=== PATIENT | female | born 1945 | race Caucasian/White ===

== ENCOUNTER 2019-04-27 16:31 | Inpatient (IN) ==
[2019-04-27] MEDS ORDERED: Naloxone 0.4 MG/ML INJ IVP PRN (20:47)
[2019-04-27] MEDS ORDERED: *HR* LORazepam 2 MG/ML VIAL IVP ONE ×2 (20:51→21:15)
[2019-04-27] MEDS ORDERED: *HR* FentaNYL (PF) 100 MCG/2 ML VIAL IVP ONE (20:51)
[2019-04-27] MEDS ORDERED: Ringers Solution, Lactated 1,000 ML IVC SCH (21:00)
[2019-04-27] MEDS ORDERED: D5% in Water 1,000 ML IVC PRN (22:07)
[2019-04-27] MEDS ORDERED: *HR* Dextrose 50 % in Water (Syg) 50 ML SYRINGE IVP PRN (22:07)
[2019-04-27] MEDS ORDERED: Dextrose Gel 15 GM/37.5 ML TUBE PO PRN ×2 (22:07)
[2019-04-27] MEDS ORDERED: Ringers Solution, Lactated 500 ML IVC ONE (23:11)
[2019-04-28] MEDS: MetroNIDAZOLE 500 MG/100 ML 500 MG/100 ML BAG IVPB SCH ×4 (00:15→23:00)
[2019-04-28] MEDS: Insulin LISPRO 300 UNITS/3 ML VIAL SQ SCH ×4 (02:27→17:19)
[2019-04-28 05:02] LABS: Prothrombin Time 11.4 Seconds (9.4-12.1)
[2019-04-28 05:09] LABS: Hemoglobin 13.1 g/dL (11.5-15.4); Mean Platelet Volume 11.1 fL (9.4-12.4); Segmented Neutrophils % 90.3 %
[2019-04-28 05:10] LABS: Basophils # 0.1 K/mcL (0.0-0.2); Basophils % 0.2 %; Hematocrit 40.6 % (35.3-44.9); Immature Granulocytes % 0.7 % (0-4); Lymphocytes % 3.2 %; Mean Corpuscular HGB Conc 32.3 g/dL (31.6-35.5); Mean Corpuscular Hemoglobin 29.9 pg (28.0-33.3); Mean Corpuscular Volume 92.7 fL (83.0-100.0); Monocytes # 1.8 K/mcL (0.0-1.3); Monocytes % 5.6 %; Neutrophils # 28.7 K/mcL (1.6-8.9); Platelet Count 320 K/mcL (140-400); Red Blood Count 4.38 M/mcL (3.82-4.97); Red Cell Distribution Width 13.5 % (11.5-14.5)
[2019-04-28] MEDS: Pantoprazole 40 MG VIAL IVP SCH ×2 (05:14→17:19)
[2019-04-28 05:26] LABS: Albumin 3.8 g/dL (3.5-5.7); Albumin/Globulin Ratio 1.7 (1.1-2.2); Bilirubin,Total 0.5 mg/dL (0.3-1.0); Calcium 8.8 mg/dL (8.6-10.3); Globulin 2.2 g/dL (2.4-3.5); Magnesium 2.9 mg/dL (1.6-2.6); Phosphorous 3.5 mg/dL (2.7-4.5); Potassium 3.3 mEq/L (3.5-5.1)
[2019-04-28 05:35] LABS: White Blood Count 31.8 K/mcL (4.3-11.1)
[2019-04-28] MEDS: MORPHINE SULFATE IT SCH ×2 (07:12→20:36)
[2019-04-28] MEDS ORDERED: *HR* Propofol 200 MG/20 ML VIAL IVP ONE ×2 (11:50→12:18)
[2019-04-28] MEDS ORDERED: Lidocaine -MPF 2% 2 ML VIAL ONE (11:50)
[2019-04-28] MEDS ORDERED: Simethicone 40 MG/0.6 ML MLS IR ONE (11:58)
[2019-04-28] MEDS ORDERED: *HR* PHENYLEPHRINE 1,000 MCG/10 ML SYRINGE IVP ONE (12:11)
[2019-04-28] MEDS ORDERED: 0.9 % Sodium Chloride 500 ML IVC ONE (12:56)
[2019-04-28] MEDS: Ondansetron 4 MG/2 ML VIAL IVP PRN (15:22)
[2019-04-28] MEDS: D5% in 0.45% NACL 1,000 ML IVC SCH (16:30)
[2019-04-28] MEDS ORDERED: Ringers Solution, Lactated 1,000 ML IVC SCH (17:00)
[2019-04-28] MEDS: cefTRIAXone 1,000 MG in Water for inj. (sterile) 10 ML IVP SCH (23:00)
[2019-04-29] MEDS: Ondansetron 4 MG/2 ML VIAL IVP PRN ×2 (00:49→09:03)
[2019-04-29] MEDS: Insulin LISPRO 300 UNITS/3 ML VIAL SQ SCH ×3 (00:49→20:33)
[2019-04-29] MEDS: D5% in 0.45% NACL 1,000 ML IVC SCH (04:13)
[2019-04-29] MEDS: Pantoprazole 40 MG VIAL IVP SCH ×2 (04:52→17:29)
[2019-04-29 05:10] LABS: Basophils % 0.1 %; Immature Granulocytes % 0.7 % (0-4); Mean Corpuscular HGB Conc 31.4 g/dL (31.6-35.5); Mean Corpuscular Hemoglobin 29.5 pg (28.0-33.3); Monocytes % 5.3 %; Red Cell Distribution Width 13.9 % (11.5-14.5)
[2019-04-29 05:12] LABS: Hemoglobin 11.6 g/dL (11.5-15.4); Lymphocytes # 1.2 K/mcL (0.6-4.6); Lymphocytes % 3.8 %; Mean Corpuscular Volume 94.1 fL (83.0-100.0); Monocytes # 1.7 K/mcL (0.0-1.3); Neutrophils # 28.1 K/mcL (1.6-8.9); Platelet Count 254 K/mcL (140-400); Red Blood Count 3.93 M/mcL (3.82-4.97); Segmented Neutrophils % 90.1 %
[2019-04-29 05:16] LABS: White Blood Count 31.2 K/mcL (4.3-11.1)
[2019-04-29 05:27] LABS: BUN/Creatinine Ratio 63 (6-26); Blood Urea Nitrogen 62 mg/dL (8-23); Calcium 8.6 mg/dL (8.6-10.3); Carbon Dioxide 34 mEq/L (23-29); Chloride 105 mEq/L (98-107); Glucose 277 mg/dL (70-105); Osmolality,Calculated 330 (280-300); Sodium 146 mEq/L (136-145); eGFR For African Americans > 60 (> 60); eGFR For Non-African Americans 55 (> 60)
[2019-04-29 06:17] LABS: Platelet Estimate Normal (Normal)
[2019-04-29] MEDS: cefTRIAXone 1,000 MG in Water for inj. (sterile) 10 ML IVP SCH (08:06)
[2019-04-29] MEDS: MetroNIDAZOLE 500 MG/100 ML 500 MG/100 ML BAG IVPB SCH ×2 (08:07→17:28)
[2019-04-29 09:38] LABS: Magnesium 2.9 mg/dL (1.6-2.6); Phosphorous 2.3 mg/dL (2.7-4.5)
[2019-04-29] MEDS ORDERED: Dextrose Gel 15 GM/37.5 ML TUBE PO PRN ×3 (09:49→16:10)
[2019-04-29] MEDS ORDERED: *HR* Dextrose 50 % in Water (Syg) 50 ML SYRINGE IVP PRN ×2 (09:49→16:10)
[2019-04-29] MEDS ORDERED: D5% in Water 1,000 ML IVC PRN (09:49)
[2019-04-29] MEDS ORDERED: *HR* OxyCODONE Immed Rel 5 MG TABLET PO PRN (09:58)
[2019-04-29] MEDS ORDERED: Ondansetron 4 MG/2 ML VIAL IVP ONE (09:58)
[2019-04-29] MEDS ORDERED: *HR* HYDROmorphone PF 0.5 MG/0.5 ML SYRINGE IVP PRN (09:58)
[2019-04-29] MEDS ORDERED: *HR* Promethazine 25 MG/ML VIAL IVP PRN (09:58)
[2019-04-29] MEDS ORDERED: *HR* FentaNYL (PF) 100 MCG/2 ML VIAL ONE (10:25)
[2019-04-29] MEDS ORDERED: *HR* Succinylcholine 200 MG/10 ML VIAL IVP ONE (10:26)
[2019-04-29] MEDS ORDERED: Dexamethasone 4 MG/ML VIAL ONE (10:26)
[2019-04-29] MEDS ORDERED: *HR* Propofol 200 MG/20 ML VIAL IVP ONE (10:26)
[2019-04-29] MEDS ORDERED: Lidocaine -MPF 2% 2 ML VIAL ONE (10:26)
[2019-04-29] MEDS ORDERED: Ondansetron 4 MG/2 ML VIAL ONE (10:26)
[2019-04-29] MEDS ORDERED: *HR* Rocuronium Bromide 50 MG/5 ML VIAL ONE (10:26)
[2019-04-29] MEDS ORDERED: Bupivacaine/EPI 1:200k 0.5%PF 30 ML VIAL ONE (10:40)
[2019-04-29] MEDS ORDERED: Albumin Human 5% 12.5 GM/250 ML IV.SOLN ONE (10:41)
[2019-04-29] MEDS ORDERED: Acetaminophen IV 1,000 MG/100 ML INFUS..BTL ONE (10:42)
[2019-04-29] MEDS ORDERED: D10% in Water 500 ML IVC PRN ×2 (11:03→16:10)
[2019-04-29] MEDS ORDERED: *HR* PHENYLEPHRINE 1,000 MCG/10 ML SYRINGE IVP ONE (11:09)
[2019-04-29] MEDS ORDERED: Insulin LISPRO 300 UNITS/3 ML VIAL SQ SCH (12:00)
[2019-04-29] MEDS ORDERED: *HR* Phenylephrine 10 MG/ML VIAL ONE (12:07)
[2019-04-29] MEDS ORDERED: *HR* Midazolam HCl 2 MG/2 ML VIAL ONE (13:58)
[2019-04-29] MEDS ORDERED: Neostigmine Methylsulfate 3 MG/3 ML SYRINGE ONE (14:00)
[2019-04-29] MEDS ORDERED: FentaNYL (PF) 1,000 MCG in 0.9 % Sodium Chloride 80 ML IVC SCH (14:30)
[2019-04-29] MEDS ORDERED: Artificial Tears SOLN 15 ML BOTTLE BOTH EYES PRN ×2 (14:31→16:10)
[2019-04-29 14:35] LABS: ABG Base Excess 6 mEq/L (-2 to 3); ABG HCO3 32 mEq/L (21-27); ABG Oxygen Saturation 93 % (95-98); ABG PCO2 50 mmHg (35-45); ABG PH 7.41 pH Units (7.32-7.45); ABG PO2 68 mmHg (85-104); ABG TCO2 33 mEq/L (20-26); Blood Gas Modality AF; Blood Gas VT 400 cc
[2019-04-29] MEDS ORDERED: Artificial Tears SOLN 15 ML BOTTLE BOTH EYES SCH (16:00)
[2019-04-29] MEDS ORDERED: Ipratropium/Albuterol Neb 3 ML IH SCH (16:00)
[2019-04-29] MEDS ORDERED: Ondansetron 4 MG/2 ML VIAL IVP PRN (16:10)
[2019-04-29] MEDS ORDERED: Naloxone 0.4 MG/ML INJ IVP PRN (16:10)
[2019-04-29] MEDS ORDERED: Potassium Phosphate 44 MEQ in 0.9 % Sodium Chloride 250 ML IVPB ONE (17:00)
[2019-04-29] MEDS ORDERED: Clinimix E 5%-15% SOLUTION 2,000 ML with MVI, adult with vitamin K 10 ML IVC SCH ×2 (17:00)
[2019-04-29] MEDS: Ringers Solution, Lactated 1,000 ML IVC SCH (17:29)
[2019-04-29] MEDS: Ipratropium/Albuterol Neb 3 ML IH SCH ×2 (19:38→23:35)
[2019-04-29] MEDS: Chlorhexidine Rinse 15 ML MOUTHWASH MM SCH (20:31)
[2019-04-29] MEDS: FentaNYL (PF) 1,000 MCG in 0.9 % Sodium Chloride 80 ML IVC SCH (20:31)
[2019-04-29] MEDS ORDERED: Chlorhexidine Rinse 15 ML MOUTHWASH MM SCH (21:00)
[2019-04-29] MEDS ORDERED: *HR* LORazepam 2 MG/ML VIAL IVP ONE (22:52)
[2019-04-30] MEDS: Insulin LISPRO 300 UNITS/3 ML VIAL SQ SCH ×6 (00:11→20:10)
[2019-04-30] MEDS: MetroNIDAZOLE 500 MG/100 ML 500 MG/100 ML BAG IVPB SCH ×4 (00:13→16:52)
[2019-04-30] MEDS: Ipratropium/Albuterol Neb 3 ML IH SCH ×3 (03:21→11:05)
[2019-04-30 04:28] LABS: ABG Base Excess 7 mEq/L (-2 to 3); ABG HCO3 32 mEq/L (21-27); ABG Oxygen Saturation 97 % (95-98); ABG PCO2 48 mmHg (35-45); ABG PH 7.43 pH Units (7.32-7.45); ABG PO2 86 mmHg (85-104); ABG TCO2 34 mEq/L (20-26); Blood Gas Modality ASSIST CONTROL; Blood Gas VT 400 cc
[2019-04-30] MEDS: Ringers Solution, Lactated 1,000 ML IVC SCH ×2 (04:35→10:10)
[2019-04-30] MEDS: D5% in 0.45% NACL 1,000 ML IVC SCH (04:35)
[2019-04-30] MEDS: Pantoprazole 40 MG VIAL IVP SCH ×2 (05:02→16:54)
[2019-04-30 05:16] LABS: Hematocrit 32.6 % (35.3-44.9); Hemoglobin 10.3 g/dL (11.5-15.4); Mean Corpuscular HGB Conc 31.6 g/dL (31.6-35.5); Mean Corpuscular Hemoglobin 30.2 pg (28.0-33.3); Mean Corpuscular Volume 95.6 fL (83.0-100.0); Mean Platelet Volume 11.5 fL (9.4-12.4); Platelet Count 197 K/mcL (140-400); Red Blood Count 3.41 M/mcL (3.82-4.97); Red Cell Distribution Width 14.3 % (11.5-14.5)
[2019-04-30 05:31] LABS: BUN/Creatinine Ratio 56 (6-26); Blood Urea Nitrogen 49 mg/dL (8-23); Calcium 8.2 mg/dL (8.6-10.3); Carbon Dioxide 32 mEq/L (23-29); Chloride 109 mEq/L (98-107); Glucose 363 mg/dL (70-105); Magnesium 2.5 mg/dL (1.6-2.6); Osmolality,Calculated 330 (280-300); Phosphorous 2.6 mg/dL (2.7-4.5); Potassium 3.5 mEq/L (3.5-5.1); Sodium 146 mEq/L (136-145); Triglycerides 67 mg/dL (< 150); eGFR For African Americans > 60 (> 60); eGFR For Non-African Americans > 60 (> 60)
[2019-04-30 06:10] LABS: Lymphocytes # 2.2 K/mcL (0.6-4.6); Monocytes # 1.1 K/mcL (0.0-1.3); Neutrophils # 23.8 K/mcL (1.6-8.9); Platelet Estimate Normal (Normal)
[2019-04-30] MEDS: FentaNYL (PF) 1,000 MCG in 0.9 % Sodium Chloride 80 ML IVC SCH (06:10)
[2019-04-30] MEDS ORDERED: D5% in Water 1,000 ML IVC PRN ×2 (07:45→12:16)
[2019-04-30] MEDS ORDERED: *HR* Dextrose 50 % in Water (Syg) 50 ML SYRINGE IVP PRN ×2 (07:45→12:16)
[2019-04-30] MEDS ORDERED: Dextrose Gel 15 GM/37.5 ML TUBE PO PRN ×3 (07:45→12:16)
[2019-04-30] MEDS ORDERED: cefTRIAXone 1,000 MG in Water for inj. (sterile) 10 ML IVP SCH (09:00)
[2019-04-30] MEDS ORDERED: Insulin DETEMIR 100 UNIT/ML X5UNITS SQ SCH (09:00)
[2019-04-30] MEDS: Chlorhexidine Rinse 15 ML MOUTHWASH MM SCH (09:07)
[2019-04-30] MEDS ORDERED: Potassium Phosphate 44 MEQ in 0.9 % Sodium Chloride 250 ML IVPB ONE (10:27)
[2019-04-30] MEDS ORDERED: *HR* OxyCODONE Immed Rel 5 MG TABLET PO PRN (11:30)
[2019-04-30] MEDS ORDERED: Insulin LISPRO 300 UNITS/3 ML VIAL SQ SCH ×2 (12:00)
[2019-04-30] MEDS ORDERED: Naloxone 0.4 MG/ML INJ IVP PRN (12:16)
[2019-04-30] MEDS ORDERED: Ondansetron 4 MG/2 ML VIAL IVP PRN (12:16)
[2019-04-30] MEDS ORDERED: Ringers Solution, Lactated 1,000 ML IVC SCH ×2 (12:16→16:59)
[2019-04-30] MEDS ORDERED: Clinimix E 5%-15% SOLUTION 2,000 ML with MVI, adult with vitamin K 10 ML IVC SCH ×3 (12:16→17:00)
[2019-04-30] MEDS ORDERED: D10% in Water 500 ML IVC PRN (12:16)
[2019-04-30] MEDS: *HR* Metoprolol 5 MG/5 ML VIAL IVP PRN (14:43)
[2019-04-30] MEDS: *HR* OxyCODONE Immed Rel 5 MG TABLET PO PRN ×2 (15:32→22:52)
[2019-04-30] MEDS ORDERED: Furosemide 40 MG/4 ML VIAL IVP ONE (15:42)
[2019-04-30] MEDS ORDERED: Ipratropium/Albuterol Neb 3 ML IH SCH (16:00)
[2019-04-30] MEDS ORDERED: Chlorhexidine Rinse 15 ML MOUTHWASH MM SCH (21:00)
[2019-04-30] MEDS: Levalbuterol Neb 0.63 MG/3 ML IH SCH (21:35)
[2019-04-30] MEDS: Ipratropium Neb 0.5 MG NEBULIZER IH SCH (21:35)
[2019-05-01] MEDS: MetroNIDAZOLE 500 MG/100 ML 500 MG/100 ML BAG IVPB SCH (01:09)
[2019-05-01] MEDS: Insulin LISPRO 300 UNITS/3 ML VIAL SQ SCH ×4 (01:10→19:35)
[2019-05-01] MEDS: *HR* OxyCODONE Immed Rel 5 MG TABLET PO PRN (03:15)
[2019-05-01] MEDS: Levalbuterol Neb 0.63 MG/3 ML IH SCH ×3 (03:24→14:56)
[2019-05-01] MEDS: Ipratropium Neb 0.5 MG NEBULIZER IH SCH ×3 (03:24→14:56)
[2019-05-01] MEDS: *HR* Metoprolol 5 MG/5 ML VIAL IVP PRN (04:10)
[2019-05-01 04:56] LABS: ABG Base Excess 9 mEq/L (-2 to 3); ABG HCO3 33 mEq/L (21-27); ABG Oxygen Saturation 86 % (95-98); ABG PCO2 45 mmHg (35-45); ABG PH 7.48 pH Units (7.32-7.45); ABG PO2 48 mmHg (85-104); ABG TCO2 35 mEq/L (20-26)
[2019-05-01 05:04] LABS: Hematocrit 32.3 % (35.3-44.9); Hemoglobin 10.1 g/dL (11.5-15.4); Mean Corpuscular HGB Conc 31.3 g/dL (31.6-35.5); Mean Corpuscular Hemoglobin 30.3 pg (28.0-33.3); Mean Platelet Volume 11.9 fL (9.4-12.4); Platelet Count 173 K/mcL (140-400); Red Blood Count 3.33 M/mcL (3.82-4.97); Red Cell Distribution Width 14.4 % (11.5-14.5)
[2019-05-01 05:08] LABS: White Blood Count 32.8 K/mcL (4.3-11.1)
[2019-05-01 05:20] LABS: BUN/Creatinine Ratio 48 (6-26); Blood Urea Nitrogen 33 mg/dL (8-23); Carbon Dioxide 33 mEq/L (23-29); Chloride 112 mEq/L (98-107); Glucose 148 mg/dL (70-105); Magnesium 2.1 mg/dL (1.6-2.6); Osmolality,Calculated 314 (280-300); Phosphorous 2.5 mg/dL (2.7-4.5); Potassium 3.7 mEq/L (3.5-5.1); Sodium 147 mEq/L (136-145); eGFR For African Americans > 60 (> 60); eGFR For Non-African Americans > 60 (> 60)
[2019-05-01] MEDS ORDERED: FentaNYL (PF) 1,000 MCG in 0.9 % Sodium Chloride 80 ML IVC SCH ×2 (06:00→08:46)
[2019-05-01] MEDS ORDERED: Norepinephrine 4 MG in 0.9 % Sodium Chloride 250 ML IVC SCH ×2 (06:15→08:46)
[2019-05-01] MEDS: Pantoprazole 40 MG VIAL IVP SCH (07:28)
[2019-05-01] MEDS ORDERED: *HR* Midazolam HCl 5 MG/5 ML VIAL IVP ONE ×2 (07:52→08:27)
[2019-05-01] MEDS ORDERED: *HR* Midazolam HCl 2 MG/2 ML VIAL IV ONE (07:52)
[2019-05-01] MEDS ORDERED: *HR* Etomidate 20 MG/10 ML AMPUL IVP ONE (07:52)
[2019-05-01] MEDS ORDERED: Piperacillin/Tazobactam 3.375 GM in 0.9 % Sodium Chloride Mini Bag 100 ML IVPB SCH ×2 (08:00→12:00)
[2019-05-01 08:07] LABS: ABG Base Excess 7 mEq/L (-2 to 3); ABG HCO3 33 mEq/L (21-27); ABG Oxygen Saturation 89 % (95-98); ABG PCO2 49 mmHg (35-45); ABG PH 7.43 pH Units (7.32-7.45); ABG PO2 56 mmHg (85-104); ABG TCO2 34 mEq/L (20-26); Blood Gas Modality ASSIST CONTROL; Blood Gas VT 450 cc
[2019-05-01] MEDS ORDERED: *HR* Heparin 5,000 UNIT/ML VIAL IVP ONE ×2 (08:21→10:59)
[2019-05-01] MEDS ORDERED: *HR* Heparin 5,000 UNIT/ML VIAL IVP PRN ×4 (08:21→10:59)
[2019-05-01] MEDS ORDERED: *HR* Midazolam HCl 2 MG/2 ML VIAL IVP ONE (08:24)
[2019-05-01] MEDS ORDERED: Heparin 25,000 UNIT/250 ML D5W 25,000 UNIT/250 ML IV.SOLN IVC SCH ×2 (08:30→11:00)
[2019-05-01] MEDS ORDERED: Dexmedetomidine HCl 400 MCG/100 ML MLS IVC SCH ×2 (08:45→09:15)
[2019-05-01] MEDS ORDERED: *HR* Dextrose 50 % in Water (Syg) 50 ML SYRINGE IVP PRN (08:46)
[2019-05-01] MEDS ORDERED: D10% in Water 500 ML IVC PRN (08:46)
[2019-05-01] MEDS ORDERED: *HR* Metoprolol 5 MG/5 ML VIAL IVP PRN (08:46)
[2019-05-01] MEDS ORDERED: D5% in Water 1,000 ML IVC PRN (08:46)
[2019-05-01] MEDS ORDERED: Dextrose Gel 15 GM/37.5 ML TUBE PO PRN (08:46)
[2019-05-01] MEDS ORDERED: Ondansetron 4 MG/2 ML VIAL IVP PRN (08:46)
[2019-05-01] MEDS ORDERED: *HR* OxyCODONE Immed Rel 5 MG TABLET PO PRN (08:46)
[2019-05-01] MEDS ORDERED: Clinimix E 5%-15% SOLUTION 2,000 ML with MVI, adult with vitamin K 10 ML IVC SCH ×2 (08:46→17:00)
[2019-05-01] MEDS ORDERED: Naloxone 0.4 MG/ML INJ IVP PRN (08:46)
[2019-05-01] MEDS ORDERED: 0.9 % Sodium Chloride 500 ML IVC ONE (08:47)
[2019-05-01] MEDS ORDERED: levoFLOXacin 750 MG/150 ML 750 MG/150 ML BAG IVPB SCH (09:00)
[2019-05-01] MEDS ORDERED: Chlorhexidine Rinse 15 ML MOUTHWASH MM SCH (09:00)
[2019-05-01] MEDS ORDERED: Insulin DETEMIR 100 UNIT/ML X5UNITS SQ SCH ×2 (09:00)
[2019-05-01] MEDS ORDERED: Cisatracurium 200 MG in 0.9 % Sodium Chloride 180 ML IVC SCH (09:00)
[2019-05-01] MEDS ORDERED: cefTRIAXone 1,000 MG in Water for inj. (sterile) 10 ML IVP SCH (09:00)
[2019-05-01] MEDS ORDERED: 0.9 % Sodium Chloride 1,000 ML ONE ×4 (09:33→13:01)
[2019-05-01] MEDS ORDERED: Vasopressin 40 UNIT in D5% in Water 100 ML IVC SCH (10:00)
[2019-05-01] MEDS ORDERED: Isovue-370 500 ML BOTTLE IVP ONE (10:02)
[2019-05-01] MEDS ORDERED: Potassium Phosphate 44 MEQ in 0.9 % Sodium Chloride 250 ML IVPB PRN (10:29)
[2019-05-01] MEDS ORDERED: Calcium Gluconate 1gm/50mL 1 GM/50 ML BAG IVPB PRN (10:29)
[2019-05-01] MEDS ORDERED: *HR* EPINEPHrine 1 MG/10 ML SYRINGE ONE (10:49)
[2019-05-01 11:01] LABS: ABG Base Excess 2 mEq/L (-2 to 3); ABG HCO3 29 mEq/L (21-27); ABG Oxygen Saturation 85 % (95-98); ABG PCO2 54 mmHg (35-45); ABG PH 7.33 pH Units (7.32-7.45); ABG PO2 54 mmHg (85-104); ABG TCO2 30 mEq/L (20-26); Blood Gas Modality ASSIST CONTROL; Blood Gas VT 400 cc
[2019-05-01] MEDS ORDERED: Ringers Solution, Lactated 1,000 ML IVC ONE (11:09)
[2019-05-01] MEDS ORDERED: Sodium Bicarbonate 50 MEQ/50 ML VIAL IVP ONE (11:10)
[2019-05-01] MEDS ORDERED: *HR* EPINEPHrine 1 MG/10 ML SYRINGE IVP ONE (11:15)
[2019-05-01] MEDS ORDERED: Ringers Solution, Lactated 1,000 ML ONE (12:19)
[2019-05-01 12:35] LABS: Basophils % 0.2 %; Hematocrit 34.6 % (35.3-44.9); Hemoglobin 10.4 g/dL (11.5-15.4); Immature Granulocytes % 1.1 % (0-4); Lymphocytes # 1.4 K/mcL (0.6-4.6); Lymphocytes % 5.6 %; Mean Corpuscular HGB Conc 30.1 g/dL (31.6-35.5); Mean Corpuscular Hemoglobin 29.9 pg (28.0-33.3); Mean Corpuscular Volume 99.4 fL (83.0-100.0); Mean Platelet Volume 12.3 fL (9.4-12.4); Monocytes # 0.3 K/mcL (0.0-1.3); Monocytes % 1.3 %; Neutrophils # 22.8 K/mcL (1.6-8.9); Nucleated Red Blood Cells 0.1 /100 WBC (0); Platelet Count 181 K/mcL (140-400); Red Blood Count 3.48 M/mcL (3.82-4.97); Red Cell Distribution Width 14.6 % (11.5-14.5); Segmented Neutrophils % 91.8 %; White Blood Count 24.8 K/mcL (4.3-11.1)
[2019-05-01 12:38] LABS: Basophils # 0.1 K/mcL (0.0-0.2)
[2019-05-01] MEDS ORDERED: Heparin 1,000 UNITS/500 mL 500 ML ONE (12:44)
[2019-05-01] MEDS ORDERED: *HR* Heparin 10,000 UNIT/10 ML VIAL ONE (12:44)
[2019-05-01] MEDS ORDERED: ISOVUE-370 200 ML INFUS..BTL ONE (12:44)
[2019-05-01] MEDS ORDERED: Nitroglycerin 1,000 MCG/10 ML VIAL IV ONE (12:44)
[2019-05-01] MEDS ORDERED: *HR* Ticagrelor 90 MG TABLET PO ONE (12:52)
[2019-05-01 12:57] LABS: BUN/Creatinine Ratio 37 (6-26); Blood Urea Nitrogen 34 mg/dL (8-23); Calcium 7.7 mg/dL (8.6-10.3); Carbon Dioxide 29 mEq/L (23-29); Chloride 111 mEq/L (98-107); Glucose 228 mg/dL (70-105); Osmolality,Calculated 323 (280-300); Potassium 4.2 mEq/L (3.5-5.1); Sodium 149 mEq/L (136-145); Troponin I 1.35 ng/mL (< 0.04); eGFR For African Americans > 60 (> 60); eGFR For Non-African Americans > 60 (> 60)
[2019-05-01 12:57] LABS: Heparin anti-factor XA UFH 0.07 IU/mL (0.30-0.70); INR 1.5; Prothrombin Time 16.8 Seconds (9.4-12.1)
[2019-05-01] MEDS: Norepinephrine 8 MG in 0.9 % Sodium Chloride 250 ML IVC SCH ×3 (13:18→18:29)
[2019-05-01 13:19] LABS: Platelet Estimate Normal (Normal)
[2019-05-01] MEDS ORDERED: Ringers Solution, Lactated 500 ML IVC ONE (13:26)
[2019-05-01] MEDS ORDERED: Phenylephrine 50 MG in 0.9 % Sodium Chloride 250 ML IVC SCH (13:30)
[2019-05-01] MEDS ORDERED: Sodium Bicarbonate 50 MEQ/50 ML VIAL ONE (13:33)
[2019-05-01] MEDS ORDERED: Calcium Gluconate 1gm/50mL 2 GM/100 ML BAG IVPB ONE (13:34)
[2019-05-01] MEDS ORDERED: Thiamine (B-1) 100 MG in 0.9 % Sodium Chloride 50 ML IVPB ONE (13:56)
[2019-05-01] MEDS ORDERED: EPINEPHrine 1 MG/ML VIAL ONE (14:00)
[2019-05-01] MEDS ORDERED: 0.9 % Sodium Chloride 250 ML ONE (14:00)
[2019-05-01 14:13] LABS: ABG Base Excess 0 mEq/L (-2 to 3); ABG HCO3 26 mEq/L (21-27); ABG Oxygen Saturation 87 % (95-98); ABG PCO2 48 mmHg (35-45); ABG PH 7.34 pH Units (7.32-7.45); ABG PO2 57 mmHg (85-104); ABG TCO2 28 mEq/L (20-26); Blood Gas Modality ASSIST CONTROL; Blood Gas VT 400 cc
[2019-05-01] MEDS ORDERED: Milrinone Premix 20 MG/100 ML 20 MG/100 ML BAG IVC SCH (14:30)
[2019-05-01] MEDS ORDERED: EPINEPHrine 5 MG in D5% in Water 250 ML IVC SCH (16:15)
[2019-05-01] MEDS ORDERED: Albumin Human 5% 12.5 GM/250 ML IV.SOLN IVPB ONE ×2 (16:31→16:46)
[2019-05-01] MEDS ORDERED: Albumin Human 5% 25.0 GM/500 ML IV.SOLN ONE (16:57)
[2019-05-01] MEDS ORDERED: Hydrocortisone Sodium Succ 100 MG/2 ML VIAL IVP SCH (17:15)
[2019-05-01] MEDS ORDERED: Pantoprazole 40 MG VIAL IVP SCH ×2 (18:00)
[2019-05-01 18:40] LABS: Nucleated Red Blood Cells 0.2 /100 WBC (0); Red Cell Distribution Width 14.5 % (11.5-14.5)
[2019-05-01 18:42] LABS: Hematocrit 33.4 % (35.3-44.9); Hemoglobin 9.7 g/dL (11.5-15.4); Mean Corpuscular Hemoglobin 30.2 pg (28.0-33.3); Mean Platelet Volume 12.1 fL (9.4-12.4); Monocytes # 0.7 K/mcL (0.0-1.3); Platelet Count 141 K/mcL (140-400); Red Blood Count 3.21 M/mcL (3.82-4.97)
[2019-05-01 18:46] LABS: White Blood Count 34.7 K/mcL (4.3-11.1)
[2019-05-01] MEDS ORDERED: 0.9 % Sodium Chloride 250 ML IVC ONE (18:58)
[2019-05-01 18:59] LABS: Heparin anti-factor XA UFH 0.44 IU/mL (0.30-0.70); INR 1.9; Prothrombin Time 21.6 Seconds (9.4-12.1)
[2019-05-01 19:02] LABS: Activated Partial Thrombo Time 109.7 Seconds (26.0-36.0)
[2019-05-01 19:07] LABS: Lymphocytes # 3.5 K/mcL (0.6-4.6); Neutrophils # 30.5 K/mcL (1.6-8.9)
[2019-05-01 19:08] LABS: Platelet Estimate Normal (Normal)
[2019-05-01 19:09] LABS: Albumin 2.9 g/dL (3.5-5.7); Albumin/Globulin Ratio 1.9 (1.1-2.2); Bilirubin,Direct 0.7 mg/dL (0.0-0.2); Bilirubin,Indirect 0.4 mg/dL (0.0-1.0); Bilirubin,Total 1.1 mg/dL (0.3-1.0); Calcium 8.1 mg/dL (8.6-10.3); Globulin 1.5 g/dL (2.4-3.5); Magnesium 2.8 mg/dL (1.6-2.6); Phosphorous 5.4 mg/dL (2.7-4.5); Potassium 4.9 mEq/L (3.5-5.1); Total Protein 4.4 g/dL (6.4-8.9); Troponin I 13.89 ng/mL (< 0.04)
[2019-05-01] MEDS ORDERED: *HR* LORazepam 2 MG/ML VIAL IVP STA (19:57)
[2019-05-01 21:13] VITALS: BP 74/53
[2019-05-01] MEDS ORDERED: Aminoglycoside Consult 1 EACH MC ONE (23:09)
[2019-05-02] MEDS ORDERED: Clinimix E 5%-15% SOLUTION 2,000 ML with MVI, adult with vitamin K 10 ML IVC SCH (17:00)
[2019-05-03] MEDS ORDERED: Clinimix E 5%-15% SOLUTION 2,000 ML with MVI, adult with vitamin K 10 ML IVC SCH (17:00)
== END 2019-05-01 23:10 | disposition expired | DRG 853 ==
LOC: 3ANU → SUATTDRO 18:49 → 3ANU 04-28 23:42 → ICNU 04-29 13:30 → 3ANU 04-30 19:07 → ICNU 05-01 05:59
PROVIDERS: ADMIT Internal Medicine; ATTEND Internal Medicine
PROC: GENLINE (2019-04-29 17:30)